=== PATIENT | male | born 1950 | race Caucasian/White ===

== ENCOUNTER → 2016-08-07 21:05 | Outpatient (CLI) | payer MEDICARE, OTHER ==
[2016-01-01 10:54] VITALS: BMI 35.3
[~2016-08-07 21:05] MED LIST: BAYER CHEWABLE81 MG PO; CLEOCIN HCL150 MG PO; DICLOFENAC SODI50 MG PO; DIFLUCAN50 MG PO; ELIQUIS2.5 MG PO; FISH OIL 1,0001 CA1 PO; FLOMAX0.4 MG PO; HYDROCODONE-APA1 TAB PO; LIPITOR20 MG PO; MULTI-DAY VITAM1 TAB PO; NEXIUM20 MG PO; PERCOCET 10/3251 TA1 PO; PERCOCET 5-3251 TAB PO; TENORMIN50 MG PO; ULTRAM50 MG PO; VOLTAREN75 MG PO; ZITHROMAX250 MG PO
== END | disposition home or self-care (01) ==
LOC: D.LABREF 21:05
DX: M19.012 Primary osteoarthritis, left shoulder (principal); Z11.8 Encounter for screening for other infectious and parasitic diseases

== ENCOUNTER 2016-09-16 07:30 | Inpatient (IN) | payer MEDICARE, OTHER ==
[~2016-09-16] VITALS: Ht 182.9 cm; Wt 127.0 kg
[2016-09-26] MEDS ORDERED: ULTRAM50 MG PO (09:58)
[2016-09-26] MEDS ORDERED: FERROUS SULFAT325 MG PO (10:00)
[2016-09-26 10:39] LABS: BASOPHILS 0.3 % (0-2); EOSINOPHILS 2.5 % (0-7); HEMATOCRIT 49.3 % (42.0-54.0); HEMOGLOBIN 16.5 g/dL (13.5-17.5); IMMATURE GRANULOCYTES 0.3 % (0-5); MCH 30.2 pg (26.0-34.0); MCHC 33.5 g/dL (31.0-37.0); MCV 90.3 fL (80.0-100.0); MEAN PLATELET VOLUME 10.7 fL (7.4-10.4); MONOCYTES 9.8 % (2-11); NEUTROPHILS 58.1 % (40-80); RBC 5.46 10x6/uL (4.20-6.10); RDW 14.4 % (11.5-14.5); WBC 7.5 10x3/uL (4.8-10.8)
[2016-09-26 10:49] LABS: CALC OSMOLALITY 283 mosm/kg (275-300); CALCIUM 8.2 mg/dL (8.5-10.1); CARBON DIOXIDE 29.5 mmol/L (21.0-32.0); CHLORIDE - SERUM 105 mmol/L (98-107); GLUCOSE 96 mg/dL (74-106); SODIUM 141 mmol/L (136-145); UREA NITROGEN 20 mg/dL (7-18); eGFR NON AFRICAN AMERICAN 79 mL/min (90-120)
[2016-09-26 10:50] LABS: PLATELET COUNT 179 10x3/uL (130-400)
[2016-09-26 10:51] LABS: APPEARANCE CLEAR (CLEAR); BILIRUBIN NEGATIVE (NEGATIVE); COLOR DK YELLOW (YELLOW); GLUCOSE NEGATIVE (NEGATIVE); KETONE NEGATIVE (NEGATIVE); LEUKOCYTE ESTERASE NEGATIVE (NEGATIVE); NITRITE NEGATIVE (NEGATIVE); PROTEIN NEGATIVE (NEGATIVE); SPECIFIC GRAVITY 1.025 (1.005-1.020); UROBILINOGEN NORMAL (NORMAL)
[2016-09-26 10:57] LABS: APTT 29.6 SECONDS (22.8-39.4); INR 0.98 (0.85-1.17); PROTIME 12.8 SECONDS (11.6-15.0)
[2016-09-30 10:32] VITALS: BP 112/63; BMI 38.0
[2016-09-30 16:35] VITALS: BP 128/55
--- NOTE | 2016-09-30 16:35 | NUR ---
RECEIVED FROM RECOVERY ROOM VIA BED. VSS. CARE PLAN REVIEWED. CALL LIGHT IN REACH. WILL CONTINUE WITH PLAN OF CARE.
--- NOTE | 2016-09-30 18:57 | NUR ---
HAS NOT VOIDED YET. NO CHANGES IN INITIAL ASSESSMENT. CALL LIGHT IN REACH. SCDs TO BLE. WILL CONTINUE WITH PLAN OF CARE,
[2016-09-30 19:00] VITALS: BP 114/80
--- NOTE | 2016-09-30 23:33 | NUR ---
2000)REC'D IN BED.SHOULDER IMMOBILIZER INTACT TO LEFT SHOULDER.MINIMAL SWELLING PRESENT.FINGERS,NAILBED PINK,WARM, WIGGLES ON COMMAND GOOD RADIAL PULSE.WILL CONTINUE TO MONITOR FOR ANY CHGES. NEUROVASCULAR STATUS AND FOLLOW CURRENT PLAN OF CARE
[2016-10-01] VITALS: BP 109/66
[2016-10-01 03:46] LABS: HEMATOCRIT 44.7 % (42.0-54.0); HEMOGLOBIN 15.2 g/dL (13.5-17.5); MCH 30.6 pg (26.0-34.0); MCV 89.9 fL (80.0-100.0); RBC 4.97 10x6/uL (4.20-6.10); RDW 14.4 % (11.5-14.5)
[2016-10-01 04:00] VITALS: BP 102/66
--- NOTE | 2016-10-01 08:16 | NUR ---
PT SEEN THIS AM. NO COMPLAINTS AT PRESENT. STATES LEFT SHOULDER NUMB-IN IMMOBLIZER. STATES HAVING DIFFICULTY VOIDING-SMALL STREAM AT PRESENT. FLOMAX GIVEN LAST PM ORDERED WILL ADDRESS WITH ASSOCIATION EXECUTIVE THIS AM. CALL LIGHT IN REACH
[2016-10-01 08:42] VITALS: BP 143/87
--- NOTE | 2016-10-01 11:20 | NUR ---
REPORT RECIEVED ASSUMED CARE. PATIENT IN BED WITH IV INTACT. NO COMPLAINTS AT THIS TIME. BRACE TO LEFT ARM ON. CALL LIGHT WITHIN REACH.
--- NOTE | 2016-10-01 11:34 | NUR ---
Patient Name: CLAIRE QUINTERO Admission Status: Elective Accout number: [id number] Admission Date: 09-30-2016 : 1950 Admission Diagnosis: Attending: GIANNA Current LOS: 1 Anticipated DC Date: Planned Disposition: Home Primary Insurance: MEDICARE A & B Discharge Planning Comments: CM met with patient to assess discharge planning needs. Patient currently lives independently with his in [place] where he plans to return to. He denies any use or needs of DME or HH services. He has 4 steps to enter his house without any problems with. Patient will be driven home by his . CM will continue to follow and assist as needed. PCP: Anuj Graham [facility] Najma () [phone] [employer] Consultant: Yue Kauffman * Is the patient Alert and Oriented? Yes 0 * How many steps to enter\exit or inside your home? 4 0 * PCP Anuj Pierce -[place] 0 * Pharmacy [facility] 0 * Preadmission Environment Home with Family 0 * ADLs Independent 0 * Equipment None 0 * List name and contact numbers for known caregivers / representatives who currently or will assist patient after discharge: Najma Quintero- [phone] * Community resources currently utilized None 0 * Additional services required to return to the preadmission environment? No 0 * Can the patient safely return to the preadmission environment? Yes 0 * Has this patient been hospitalized within the prior 30 days at any hospital? No 0 Grand Total: 0
--- NOTE | 2016-10-01 11:42 | NUR ---
Patient stated that he has already set up his Physical Therapy in [place] for Oct 15 with [facility]
--- NOTE | 2016-10-01 12:15 | NUR ---
PATIENT SITTING UP ON SIDE OF BED EATING. NO COMPLAINTS AT THIS TIME. STATED WANTS TO DC TODAY. EXPLAINED WOULD HAVE TO WAIT TO SEE WHAT PHYSICIAN SAYS. VERBALIZED UNDERSTANDING. CALL LIGHT WITHIN REACH.
[2016-10-01 12:46] VITALS: Ht 182.9 cm; Wt 127.0 kg
[2016-10-01 14:10] VITALS: BP 121/70
--- NOTE | 2016-10-01 15:43 | NUR ---
RHODES CATH PLACED BY JORGE ATKINSON
--- NOTE | 2016-10-01 16:45 | NUR ---
PATIENT IN BED WITH IV INTACT. NO COMPLAINTS. AWAITING DC INSTRUCTIONS. CALL LIGHT WITHIN REACH.
[2016-10-01] MEDS ORDERED: PERCOCET 10/3251 TA1 PO (17:03)
--- NOTE | 2016-10-01 18:00 | NUR ---
PATIENT RECIEVED DC INSTRUCTIONS. VERBALIZED UNDERSTANDING. PRESCRIPTION GIVEN TO PATIENT. IV REMOVED WITH CATH TIP INTACT. EXPLAINED TO PATIENT HOW TO CHANGE CATH TO LEG BAG. PATIENT VERBALIZED UNDERSTANDING. STATED HE HAD USED THEM BEFORE. AWAITING WC FOR DC. CALL LIGHT WITHIN REACH.
== END 2016-10-01 18:47 | disposition home or self-care (01) | DRG 483 ==
LOC: D.SDCHOLD 09-30 07:02 → D.MS 09-30 07:02 → D.SDCHOLD 09-30 07:30 → D.MS 09-30 16:10
PROVIDERS: ADMIT Orthopaedic Surgery
PROC: 0RRK0JZ Replacement of Left Shoulder Joint with Synthetic Substitute, Open Approach (ICD-10-PCS; principal; 2016-09-30 11:45)
DX: M19.012 Primary osteoarthritis, left shoulder (principal); K21.9 Gastro-esophageal reflux disease without esophagitis; E78.00 Pure hypercholesterolemia, unspecified

== ENCOUNTER → 2019-02-02 17:53 | Outpatient (CLI) | payer MEDICARE ==
[2016-10-01 12:46] VITALS: BMI 38.0
[~2019-02-02 17:53] MED LIST changes: +FERROUS SULFAT325 MG PO
== END | disposition home or self-care (01) ==
LOC: D.LABREF 17:53
PROVIDERS: ATTEND Orthopaedic Surgery
DX: M17.12 Unilateral primary osteoarthritis, left knee (principal)

== ENCOUNTER 2019-02-04 11:18 | Inpatient (IN) | payer MEDICARE, OTHER ==
[~2019-02-04] VITALS: Ht 182.9 cm; Wt 122.7 kg
[2019-04-20] MEDS ORDERED: NEXIUM20 MG PO (14:59)
[2019-04-21 11:16] LABS: BASOPHILS 0.3 % (0-2); EOSINOPHILS 3.9 % (0-7); HEMATOCRIT 50.6 % (42.0-54.0); HEMOGLOBIN 17.1 g/dL (13.5-17.5); IMMATURE GRANULOCYTES 0.2 % (0-5); LYMPHOCYTES 21.9 % (15-50); MCH 30.2 pg (26.0-34.0); MCHC 33.8 g/dL (31.0-37.0); MCV 89.2 fL (80.0-100.0); MEAN PLATELET VOLUME 10.5 fL (7.4-10.4); MONOCYTES 12.2 % (2-11); NEUTROPHILS 61.5 % (40-80); PLATELET COUNT 210 10x3/uL (130-400); RBC 5.67 10x6/uL (4.20-6.10); RDW 14.2 % (11.5-14.5)
[2019-04-21 11:27] LABS: ANION GAP 8.3 mmol/L (8-16); CALCIUM 8.7 mg/dL (8.5-10.1); CARBON DIOXIDE 33.1 mmol/L (21.0-32.0); CREATININE - SERUM 1.2 mg/dL (0.6-1.3); POTASSIUM - SERUM 4.4 mmol/L (3.5-5.1)
[2019-04-21 11:35] LABS: BILIRUBIN NEGATIVE (NEGATIVE); GLUCOSE NEGATIVE (NEGATIVE); KETONE NEGATIVE (NEGATIVE); NITRITE NEGATIVE (NEGATIVE); UROBILINOGEN NORMAL (NORMAL)
[2019-04-21 12:02] LABS: APTT 29.6 SECONDS (22.8-39.4); INR 0.97 (0.85-1.17); PROTIME 12.8 SECONDS (11.6-15.0)
[2019-04-26] VITALS (9 sets, daily range): BP systolic 116–163; BP diastolic 70–97; Ht 182.9 cm; Wt 122.7 kg
--- NOTE | 2019-04-26 17:30 | MORECARE ---
CASE MANAGEMENT DISCHARGE SUMMARY PATIENT: CLAIRE HENDRIX UNIT: [id number] ADM DATE: 04/26/19 AGE: 69 : 49 SEX: M ROOM/BED: D.1209 AUTHOR: JASMINE MESA PHYSICIAN: REFERRING PHYSICIAN: GERMAN MORENO MD DATE OF SERVICE: 04/26/19 Discharge Plan Patient Name: CLAIRE HENDRIX [facility] [facility] 1950 Planned Disposition: Home Anticipated Discharge Date: Discharge Date: Expected LOS: Initial Reviewer: [id number] Initial Review Date: 04/26/2019 Generated: 04/26/19 6:30 pm Coverage Notice Reviewer: [id number] Jamila Casillas Notice Issued Date-Time: 04/26/2019 16:20 Notice Type: IM Admission Notice Notice Delivered To: Patient Relationship to Patient: Acid Wash Operator Name: Delivery Method: - Yamilka Days: Prior Verbal Notification: Recipient Understood Notice: Yes Recipient Signature: Yes Med Rec Note Co-signed by Attending: Coverage Notice Comment: IMM delivered, explained, signed by the patient, and placed in his chart. Signed form also left with patient. Fina Casillas RN, [facility] Reviewer: [id number] Jamila Casillas Notice Issued Date-Time: 04/26/2019 16:20 Notice Type: Patient Choice Letter Notice Delivered To: Patient Relationship to Patient: Acid Wash Operator Name: Delivery Method: - Yamilka Days: Prior Verbal Notification: Recipient Understood Notice: Yes Recipient Signature: Yes Med Rec Note Co-signed by Attending: Coverage Notice Comment: LUDA signed for Physical Therapy [facility] Patient Name: CLAIRE HENDRIX Page [id number] at 1730 All edits/amendments must be made on the electronic document DICTATION DATE: 04/26/19 173 GERIATRIC CARE MANAGER: BRAEDEN 04/26/19 173 RPT#: [id number] DC DATE: STATUS: ADM IN [facility] [address] [place] [address] END OF REPORT
--- NOTE | 2019-04-26 17:39 | MORECARE ---
CASE MANAGEMENT DISCHARGE SUMMARY PATIENT: CLAIRE QUINTERO UNIT: [id number] ADM DATE: 04/26/19 AGE: 69 : 49 SEX: M ROOM/BED: D.1209 AUTHOR: BONITA,DOC PHYSICIAN: REFERRING PHYSICIAN: GERMAN MORENO MD DATE OF SERVICE: 04/26/19 Discharge Plan Patient Name: CLAIRE QUINTERO Facility: [facility]:[place] : 1950 Planned Disposition: Home Anticipated Discharge Date: Discharge Date: Expected LOS: Initial Reviewer: [id number] Initial Review Date: 04/26/2019 Generated: 04/26/19 6:38 pm Comments DCP- Discharge Planning Updated by [id number]: Fina Casillas on 04/26/19 4:[address] DC PLAN: Return home with and outpatient physical therapy. ANTICIPATED DC NEEDS: OP PT @ [facility] in [place]. CM met with patient to complete initial dc planning assessment. CM educated patient on the CM role and verbal consent given by patient to complete assessment. CM verified patient's address, phone number, and emergency contact phone numbers. Patient lives at home with his and was independent in his care prior to surgery. At discharge patient plans to return home with his and feels this is a safe discharge. He signed marty form for Physical [facility] in [place]. He reports he has already made his first appointment for 05-06-19. He stated he would call and change if he needed to. Cm will fax order to the office once fax number is known. Office closed at this time. He reports his walker, cpm, and bsc have be delivered to his home prior to surgery. He reports the walker is not the right height and he needs a different one. CM called Jenna at Dr. Hodge office and she stated she would call the [employer] to bring appropriate walker. Patient denied further known discharge needs at this time. Transportation provider at discharge will be his . CM will continue to follow and will assist as needed with dc plans/needs. Fina Casillas RN, [facility] DCPIA - Discharge Planning Initial Assessment Updated by [id number]: Fina Casillas on 04/26/19 5:31 pm * Is the patient Alert and Oriented? Yes * How many steps to enter\exit or inside your home? * PCP Dr. Anuj Pierce - [place] * Pharmacy [facility] in [place] * Preadmission Environment Home with Family * ADLs Independent * Equipment Bedside Commode Rolling Walker * Other Equipment CPM * List name and contact numbers for known caregivers / representatives who currently or will assist patient after discharge: Najma Quintero - [facility] - [phone] * Verbal permission to speak to the caregivers and representatives has been obtained from the patient. Yes * Additional services required to return to the preadmission environment? Yes * Can the patient safely return to the preadmission environment? Yes * Has this patient been hospitalized within the prior 30 days at any hospital? No Coverage Notice Reviewer: [id number] Jamila Casillas Notice Issued Date-Time: 04/26/2019 16:20 Notice Type: IM Admission Notice Notice Delivered To: Patient Relationship to Patient: Retinal Angiographer Name: Delivery Method: - Yamilka Days: Prior Verbal Notification: Recipient Understood Notice: Yes Recipient Signature: Yes Med Rec Note Co-signed by Attending: Coverage Notice Comment: IMM delivered, explained, signed by the patient, and placed in his chart. Signed form also left with patient. Fina Casillas RN, CCM Reviewer: [id number] Jamila Casillas Notice Issued Date-Time: 04/26/2019 16:20 Notice Type: Patient Choice Letter Notice Delivered To: Patient Relationship to Patient: Retinal Angiographer Name: Delivery Method: - Yamilka Days: Prior Verbal Notification: Recipient Understood Notice: Yes Recipient Signature: Yes Med Rec Note Co-signed by Attending: Coverage Notice Comment: MARTY signed for Physical Therapy [facility] Last DP export: 04/26/19 4:30 pm Patient Name: CLAIRE QUINTERO Page [id number] at 1739 All edits/amendments must be made on the electronic document DICTATION DATE: 04/26/191737 DIRECTOR MUSEUM OR ZOO: BRAEDEN 04/26/191737 RPT#: [id number] DC DATE: STATUS: ADM IN [facility] [address] [place] [address] END OF REPORT
[2019-04-27] VITALS (7 sets, daily range): BP systolic 103–150; BP diastolic 62–75
[2019-04-27 06:37] LABS: HEMATOCRIT 44.6 % (42.0-54.0); HEMOGLOBIN 14.6 g/dL (13.5-17.5); MCHC 32.7 g/dL (31.0-37.0); MCV 88.5 fL (80.0-100.0); MEAN PLATELET VOLUME 10.5 fL (7.4-10.4); RBC 5.04 10x6/uL (4.20-6.10); WBC 13.3 10x3/uL (4.8-10.8)
--- NOTE | 2019-04-27 10:25 | MORECARE ---
CASE MANAGEMENT DISCHARGE SUMMARY PATIENT: CLAIRE QUINTERO UNIT: [id number] ADM DATE: 04/26/19 AGE: 69 : 49 SEX: M ROOM/BED: D.1209 AUTHOR: BONITA,DOC PHYSICIAN: REFERRING PHYSICIAN: GERMAN MORENO MD DATE OF SERVICE: 04/27/19 Discharge Plan Patient Name: CLAIRE QUINTERO Facility: [facility]:[place] : 1950 Planned Disposition: Home Anticipated Discharge Date: Discharge Date: Expected LOS: Initial Reviewer: [email or web address] Initial Review Date: 04/26/2019 Generated: 04/27/19 11:24 am Comments DCP- Discharge Planning Updated by [email or web address]: Samira Rankin on 04/27/19 9:[address] CM contacted OP Physical Therapy [facility] [employer] [facility] [place], verified appointment April 29, 2019 @0945. CM faxed the order to [facility] and provided a copy to the patient. Original placed on chart. DCP- Discharge Planning Updated by [email or web address]: Fina Casillas on 04/26/19 4:[address] DC PLAN: Return home with and outpatient physical therapy. ANTICIPATED DC NEEDS: OP PT @ Physical [email or web address] in [place]. CM met with patient to complete initial dc planning assessment. CM educated patient on the CM role and verbal consent given by patient to complete assessment. CM verified patient's address, phone number, and emergency contact phone numbers. Patient lives at home with his and was independent in his care prior to surgery. At discharge patient plans to return home with his and feels this is a safe discharge. He signed marty form for Physical [employer] in [place]. He reports he has already made his first appointment for 05-06-19. He stated he would call and change if he needed to. Cm will fax order to the office once fax number is known. Office closed at this time. He reports his walker, cpm, and bsc have be delivered to his home prior to surgery. He reports the walker is not the right height and he needs a different one. CM called Jenna at Dr. Hodge office and she stated she would call the [employer] to bring appropriate walker. Patient denied further known discharge needs at this time. Transportation provider at discharge will be his . CM will continue to follow and will assist as needed with dc plans/needs. Fina Casillas RN, CCM DCPIA - Discharge Planning Initial Assessment Updated by [email or web address]: Fina Casillas on 04/26/19 5:31 pm * Is the patient Alert and Oriented? Yes * How many steps to enter\exit or inside your home? * PCP Dr[facility] Anuj [facility] * Pharmacy [facility] in [place] * Preadmission Environment Home with Family * ADLs Independent * Equipment Bedside Commode Rolling Walker * Other Equipment CPM * List name and contact numbers for known caregivers / representatives who currently or will assist patient after discharge: Najma Quintero - spouse - [phone] * Verbal permission to speak to the caregivers and representatives has been obtained from the patient. Yes * Additional services required to return to the preadmission environment? Yes * Can the patient safely return to the preadmission environment? Yes * Has this patient been hospitalized within the prior 30 days at any hospital? No Coverage Notice Reviewer: [id number] Jamila Casillas Notice Issued Date-Time: 04/26/2019 16:20 Notice Type: IM Admission Notice Notice Delivered To: Patient Relationship to Patient: Water Chemist Name: Delivery Method: - Yamilka Days: Prior Verbal Notification: Recipient Understood Notice: Yes Recipient Signature: Yes Med Rec Note Co-signed by Attending: Coverage Notice Comment: IMM delivered, explained, signed by the patient, and placed in his chart. Signed form also left with patient. Fina Casillas RN, CCM Reviewer: [id number] Jamila Casillas Notice Issued Date-Time: 04/26/2019 16:20 Notice Type: Patient Choice Letter Notice Delivered To: Patient Relationship to Patient: Water Chemist Name: Delivery Method: - Yamilka Days: Prior Verbal Notification: Recipient Understood Notice: Yes Recipient Signature: Yes Med Rec Note Co-signed by Attending: Coverage Notice Comment: MARTY signed for Physical Therapy [facility] Last DP export: 04/26/19 4:39 pm Patient Name: CLAIRE QUINTERO Page [phone] at 1025 All edits/amendments must be made on the electronic document DICTATION DATE: 04/27/19 1024 DEDICATED TRUCK DRIVER: BRAEDEN 04/27/19 1024 RPT#: [id number] DC DATE: STATUS: ADM IN [facility] [address] [place] [address] END OF REPORT
--- NOTE | 2019-04-27 10:51 | MORECARE ---
CASE MANAGEMENT DISCHARGE SUMMARY PATIENT: CLAIRE QUINTERO UNIT: [id number] ADM DATE: 04/26/19 AGE: 69 : 49 SEX: M ROOM/BED: D.1209 AUTHOR: BONITA,DOC PHYSICIAN: REFERRING PHYSICIAN: GERMAN MORENO MD DATE OF SERVICE: 04/27/19 Discharge Plan Patient Name: CLAIRE QUINTERO Facility: [facility]:[place] : 1950 Planned Disposition: Home Anticipated Discharge Date: Discharge Date: Expected LOS: Initial Reviewer: [email or web address] Initial Review Date: 04/26/2019 Generated: 04/27/19 11:51 am Comments DCP- Discharge Planning Updated by [id number]: Samira Rankin on 04/27/19 9:[address] Home walker was delivered to patient's room. DCP- Discharge Planning Updated by [email or web address]: Samira Rankin on 04/27/19 9:[address] CM contacted OP [facility] [place], verified appointment April 29, 2019 @0945. CM faxed the order to [facility] and provided a copy to the patient. Original placed on chart. DCP- Discharge Planning Updated by [email or web address]: Fina Casillas on 04/26/19 4:[address] DC PLAN: Return home with and outpatient physical therapy. ANTICIPATED DC NEEDS: OP PT @ [facility] in [place]. CM met with patient to complete initial dc planning assessment. CM educated patient on the CM role and verbal consent given by patient to complete assessment. CM verified patient's address, phone number, and emergency contact phone numbers. Patient lives at home with his and was independent in his care prior to surgery. At discharge patient plans to return home with his and feels this is a safe discharge. He signed marty form for Physical [facility] in [place]. He reports he has already made his first appointment for 05-06-19. He stated he would call and change if he needed to. Cm will fax order to the office once fax number is known. Office closed at this time. He reports his walker, cpm, and bsc have be delivered to his home prior to surgery. He reports the walker is not the right height and he needs a different one. CM called Jenna at Dr. Hodge office and she stated she would call the [employer] company to bring appropriate walker. Patient denied further known discharge needs at this time. Transportation provider at discharge will be his . CM will continue to follow and will assist as needed with dc plans/needs. Fina Casillas RN, CCM DCPIA - Discharge Planning Initial Assessment Updated by [id number]: Fina Casillas on 04/26/19 5:31 pm * Is the patient Alert and Oriented? Yes * How many steps to enter\exit or inside your home? * PCP Dr. Anuj Pierce - [place] * Pharmacy [facility] in [place] * Preadmission Environment Home with Family * ADLs Independent * Equipment Bedside Commode Rolling Walker * Other Equipment CPM * List name and contact numbers for known caregivers / representatives who currently or will assist patient after discharge: Najma Quintero - spouse - [phone] * Verbal permission to speak to the caregivers and representatives has been obtained from the patient. Yes * Additional services required to return to the preadmission environment? Yes * Can the patient safely return to the preadmission environment? Yes * Has this patient been hospitalized within the prior 30 days at any hospital? No Coverage Notice Reviewer: [id number] Jamila Casillas Notice Issued Date-Time: 04/26/2019 16:20 Notice Type: IM Admission Notice Notice Delivered To: Patient Relationship to Patient: Medical Videographer Name: Delivery Method: - Yamilka Days: Prior Verbal Notification: Recipient Understood Notice: Yes Recipient Signature: Yes Med Rec Note Co-signed by Attending: Coverage Notice Comment: IMM delivered, explained, signed by the patient, and placed in his chart. Signed form also left with patient. Fina Casillas RN, CCM Reviewer: [id number] Jamila Casillas Notice Issued Date-Time: 04/26/2019 16:20 Notice Type: Patient Choice Letter Notice Delivered To: Patient Relationship to Patient: Medical Videographer Name: Delivery Method: - Yamilka Days: Prior Verbal Notification: Recipient Understood Notice: Yes Recipient Signature: Yes Med Rec Note Co-signed by Attending: Coverage Notice Comment: MARTY signed for Physical Therapy [facility] Last DP export: 04/27/19 9:25 am Patient Name: CLAIRE QUINTERO Page [phone] at 1051 All edits/amendments must be made on the electronic document DICTATION DATE: 04/27/19 105 AUTOMOBILE SALES CONSULTANT: BRAEDEN 04/27/19 1051 RPT#: [id number] DC DATE: STATUS: ADM IN [facility] [address] [place] [address] END OF REPORT
[2019-04-28 04:25] VITALS: BP 136/73
[2019-04-28 07:50] VITALS: BP 136/75
[2019-04-28 09:01] LABS: HEMATOCRIT 43.6 % (42.0-54.0); HEMOGLOBIN 14.6 g/dL (13.5-17.5); MCH 29.5 pg (26.0-34.0); MCHC 33.5 g/dL (31.0-37.0); MCV 88.1 fL (80.0-100.0); MEAN PLATELET VOLUME 10.8 fL (7.4-10.4); RBC 4.95 10x6/uL (4.20-6.10); WBC 16.3 10x3/uL (4.8-10.8)
[2019-04-28 11:52] VITALS: BP 122/66
--- NOTE | 2019-04-28 14:26 | MORECARE ---
CASE MANAGEMENT DISCHARGE SUMMARY PATIENT: CLAIRE QUINTERO UNIT: [id number] ADM DATE: 04/26/19 AGE: 69 : 49 SEX: M ROOM/BED: D.1209 AUTHOR: BONITA,DOC PHYSICIAN: REFERRING PHYSICIAN: GERMAN MORENO MD DATE OF SERVICE: 04/28/19 Discharge Plan Patient Name: CLAIRE QUINTERO Facility: [facility]:[place] : 1950 Planned Disposition: Home Anticipated Discharge Date: Discharge Date: Expected LOS: Initial Reviewer: [email or web address] Initial Review Date: 04/26/2019 Generated: 04/28/19 3:25 pm Comments DCP- Discharge Planning Updated by [email or web address]: Samira Rankin on 04/27/19 9:[address] Home walker was delivered to patient's room. DCP- Discharge Planning Updated by [email or web address]: Samira Rankin on 04/27/19 9:[address] CM contacted OP Physical [employer] [facility] [place], verified appointment April 29, 2019 @0945. CM faxed the order to [facility] and provided a copy to the patient. Original placed on chart. DCP- Discharge Planning Updated by [email or web address]: Fina Casillas on 04/26/19 4:[address] DC PLAN: Return home with and outpatient physical therapy. ANTICIPATED DC NEEDS: OP PT @ Physical [employer] in [place]. CM met with patient to complete initial dc planning assessment. CM educated patient on the CM role and verbal consent given by patient to complete assessment. CM verified patient's address, phone number, and emergency contact phone numbers. Patient lives at home with his and was independent in his care prior to surgery. At discharge patient plans to return home with his and feels this is a safe discharge. He signed marty form for Physical [employer] in [place]. He reports he has already made his first appointment for 05-06-19. He stated he would call and change if he needed to. Cm will fax order to the office once fax number is known. Office closed at this time. He reports his walker, cpm, and bsc have be delivered to his home prior to surgery. He reports the walker is not the right height and he needs a different one. CM called Jenna at Dr. Hodge office and she stated she would call the [employer] company to bring appropriate walker. Patient denied further known discharge needs at this time. Transportation provider at discharge will be his . CM will continue to follow and will assist as needed with dc plans/needs. Fina Casillas RN, CCM DCPIA - Discharge Planning Initial Assessment Updated by [id number]: Fina Casillas on 04/26/19 5:31 pm * Is the patient Alert and Oriented? Yes * How many steps to enter\exit or inside your home? * PCP Dr. Anuj Pierce - [place] * Pharmacy [facility] in [place] * Preadmission Environment Home with Family * ADLs Independent * Equipment Bedside Commode Rolling Walker * Other Equipment CPM * List name and contact numbers for known caregivers / representatives who currently or will assist patient after discharge: Najma Quintero - spouse - [phone] * Verbal permission to speak to the caregivers and representatives has been obtained from the patient. Yes * Additional services required to return to the preadmission environment? Yes * Can the patient safely return to the preadmission environment? Yes * Has this patient been hospitalized within the prior 30 days at any hospital? No Coverage Notice Reviewer: [id number] Jamila Casillas Notice Issued Date-Time: 04/26/2019 16:20 Notice Type: IM Admission Notice Notice Delivered To: Patient Relationship to Patient: Esol Teacher Assistant Name: Delivery Method: - Yamilka Days: Prior Verbal Notification: Recipient Understood Notice: Yes Recipient Signature: Yes Med Rec Note Co-signed by Attending: Coverage Notice Comment: IMM delivered, explained, signed by the patient, and placed in his chart. Signed form also left with patient. Fina Casillas RN, CCM Reviewer: [id number] Jamila Casillas Notice Issued Date-Time: 04/26/2019 16:20 Notice Type: Patient Choice Letter Notice Delivered To: Patient Relationship to Patient: Esol Teacher Assistant Name: Delivery Method: - Yamilka Days: Prior Verbal Notification: Recipient Understood Notice: Yes Recipient Signature: Yes Med Rec Note Co-signed by Attending: Coverage Notice Comment: MARTY signed for Physical Therapy [facility] Last DP export: 04/27/19 9:51 am Patient Name: CLAIRE QUINTERO Page [id number] Electronically Signed by JASMINE [facility] on 04/28/19 at 1426 All edits/amendments must be made on the electronic document DICTATION DATE: 04/28/191424 DIRECTOR INVESTMENT BANKING: BRAEDEN 04/28/19 142 RPT#: [id number] DC DATE: STATUS: ADM IN [address] [place] [address] END OF REPORT
--- NOTE | 2019-04-28 16:13 | MORECARE ---
CASE MANAGEMENT DISCHARGE SUMMARY PATIENT: CLAIRE QUINTERO UNIT: [id number] ADM DATE: 04/26/19 AGE: 69 : 49 SEX: M ROOM/BED: D.1209 AUTHOR: BONITA,DOC PHYSICIAN: REFERRING PHYSICIAN: GERMAN MORENO MD DATE OF SERVICE: 04/28/19 Discharge Plan Patient Name: CLAIRE QUINTERO Facility: [facility]:[place] : 1950 Planned Disposition: Home Anticipated Discharge Date: Discharge Date: Expected LOS: Initial Reviewer: [email or web address] Initial Review Date: 04/26/2019 Generated: 04/28/19 5:12 pm Comments DCP- Discharge Planning Updated by [id number]: Samira Rankin on 04/27/19 9:[address] Home walker was delivered to patient's room. DCP- Discharge Planning Updated by [id number]: Samira Rankin on 04/27/19 9:[address] CM contacted OP [facility] of [place], verified appointment April 29, 2019 @0945. CM faxed the order to [facility] and provided a copy to the patient. Original placed on chart. DCP- Discharge Planning Updated by [email or web address]: Fina Casillas on 04/26/19 4:[address] DC PLAN: Return home with and outpatient physical therapy. ANTICIPATED DC NEEDS: OP PT @ [facility] in [place]. CM met with patient to complete initial dc planning assessment. CM educated patient on the CM role and verbal consent given by patient to complete assessment. CM verified patient's address, phone number, and emergency contact phone numbers. Patient lives at home with his and was independent in his care prior to surgery. At discharge patient plans to return home with his and feels this is a safe discharge. He signed marty form for [facility] in [place]. He reports he has already made his first appointment for 05-06-19. He stated he would call and change if he needed to. Cm will fax order to the office once fax number is known. Office closed at this time. He reports his walker, cpm, and bsc have be delivered to his home prior to surgery. He reports the walker is not the right height and he needs a different one. CM called Jenna at Dr. Hodge office and she stated she would call the [employer] company to bring appropriate walker. Patient denied further known discharge needs at this time. Transportation provider at discharge will be his . CM will continue to follow and will assist as needed with dc plans/needs. Fina Casillas RN, CCM DCPIA - Discharge Planning Initial Assessment Updated by [email or web address]: Fina Casillas on 04/26/19 5:31 pm * Is the patient Alert and Oriented? Yes * How many steps to enter\exit or inside your home? * PCP Dr. Anuj Pierce - [place] * Pharmacy [facility] in [place] * Preadmission Environment Home with Family * ADLs Independent * Equipment Bedside Commode Rolling Walker * Other Equipment CPM * List name and contact numbers for known caregivers / representatives who currently or will assist patient after discharge: Najma Quintero - spouse - [phone] * Verbal permission to speak to the caregivers and representatives has been obtained from the patient. Yes * Additional services required to return to the preadmission environment? Yes * Can the patient safely return to the preadmission environment? Yes * Has this patient been hospitalized within the prior 30 days at any hospital? No Coverage Notice Reviewer: [id number] Jamila Casillas Notice Issued Date-Time: 04/26/2019 16:20 Notice Type: IM Admission Notice Notice Delivered To: Patient Relationship to Patient: Plastics Tooling Engineer Name: Delivery Method: - Yamilka Days: Prior Verbal Notification: Recipient Understood Notice: Yes Recipient Signature: Yes Med Rec Note Co-signed by Attending: Coverage Notice Comment: IMM delivered, explained, signed by the patient, and placed in his chart. Signed form also left with patient. Fina Casillas RN, CCM Reviewer: [id number] - Fina Casillas Notice Issued Date-Time: 04/26/2019 16:20 Notice Type: Patient Choice Letter Notice Delivered To: Patient Relationship to Patient: Plastics Tooling Engineer Name: Delivery Method: - Yamilka Days: Prior Verbal Notification: Recipient Understood Notice: Yes Recipient Signature: Yes Med Rec Note Co-signed by Attending: Coverage Notice Comment: MARTY signed for Physical Therapy [facility] Reviewer: [id number] Jamila Rankin Notice Issued Date-Time: 04/28/2019 14:28 Notice Type: IM Discharge Notice Notice Delivered To: Patient Relationship to Patient: Self Plastics Tooling Engineer Name: Claire Quintero Delivery Method: HAND - Hand Delivered Yamilka Days: Prior Verbal Notification: Recipient Understood Notice: Yes Recipient Signature: Yes Med Rec Note Co-signed by Attending: Coverage Notice Comment: DC IMM delivered to and signed by patient. Original given to the patient and one placed on the chart. Last DP export: 04/28/19 1:26 pm Patient Name: CLAIRE QUINTERO Page [id number] at 1613 All edits/amendments must be made on the electronic document DICTATION DATE: 04/28/19 1613 GLASSWARE ENGRAVER: BRAEDEN 04/28/19 1613 RPT#: [id number] DC DATE: STATUS: ADM IN [facility] [address] [place] [address] END OF REPORT
--- NOTE | 2019-04-28 16:23 | MORECARE ---
CASE MANAGEMENT DISCHARGE SUMMARY PATIENT: CLAIRE QUINTERO UNIT: [id number] ADM DATE: 04/26/19 AGE: 69 : 49 SEX: M ROOM/BED: D.1209 AUTHOR: BONITA,DOC PHYSICIAN: REFERRING PHYSICIAN: GERMAN MORENO MD DATE OF SERVICE: 04/28/19 Discharge Plan Patient Name: CLAIRE QUINTERO Facility: [facility]:[place] : 1950 Planned Disposition: Home Anticipated Discharge Date: Discharge Date: Expected LOS: Initial Reviewer: [email or web address] Initial Review Date: 04/26/2019 Generated: 04/28/19 5:23 pm Comments DCP- Discharge Planning Updated by [id number]: Samira Rankin on 04/28/19 3:[address] CM contacted Outpatient Therapy in [place] to reschedule appointment. new appointment 04/30/19 @1045. Patient's is aware of same. DCP- Discharge Planning Updated by [id number]: Samira Rankin on 04/27/19 9:[address] Home walker was delivered to patient's room. DCP- Discharge Planning Updated by [id number]: Samira Rankin on 04/27/19 9:[address] CM contacted OP [facility] of [place], verified appointment April 29, 2019 @0945. CM faxed the order to [facility] and provided a copy to the patient. Original placed on chart. DCP- Discharge Planning Updated by [id number]: Fina Casillas on 04/26/19 4:[address] DC PLAN: Return home with and outpatient physical therapy. ANTICIPATED DC NEEDS: OP PT @ [facility] in [place]. CM met with patient to complete initial dc planning assessment. CM educated patient on the CM role and verbal consent given by patient to complete assessment. CM verified patient's address, phone number, and emergency contact phone numbers. Patient lives at home with his and was independent in his care prior to surgery. At discharge patient plans to return home with his and feels this is a safe discharge. He signed amrty form for [facility] in [place]. He reports he has already made his first appointment for 05-06-19. He stated he would call and change if he needed to. Cm will fax order to the office once fax number is known. Office closed at this time. He reports his walker, cpm, and bsc have be delivered to his home prior to surgery. He reports the walker is not the right height and he needs a different one. CM called Jenna at Dr. Hodge office and she stated she would call the [employer] company to bring appropriate walker. Patient denied further known discharge needs at this time. Transportation provider at discharge will be his . CM will continue to follow and will assist as needed with dc plans/needs. Fina Casillas RN, CCM DCPIA - Discharge Planning Initial Assessment Updated by [id number]: Fina Casillas on 04/26/19 5:31 pm * Is the patient Alert and Oriented? Yes * How many steps to enter\exit or inside your home? * PCP Dr[facility] Anuj [facility] * Pharmacy [facility] in [place] * Preadmission Environment Home with Family * ADLs Independent * Equipment Bedside Commode Rolling Walker * Other Equipment CPM * List name and contact numbers for known caregivers / representatives who currently or will assist patient after discharge: Najma Quintero - spouse - [phone] * Verbal permission to speak to the caregivers and representatives has been obtained from the patient. Yes * Additional services required to return to the preadmission environment? Yes * Can the patient safely return to the preadmission environment? Yes * Has this patient been hospitalized within the prior 30 days at any hospital? No Coverage Notice Reviewer: [id number] Jamila Casillas Notice Issued Date-Time: 04/26/2019 16:20 Notice Type: IM Admission Notice Notice Delivered To: Patient Relationship to Patient: Bobbin Marker Name: Delivery Method: - Yamilka Days: Prior Verbal Notification: Recipient Understood Notice: Yes Recipient Signature: Yes Med Rec Note Co-signed by Attending: Coverage Notice Comment: IMM delivered, explained, signed by the patient, and placed in his chart. Signed form also left with patient. Fina Casillas RN, CCM Reviewer: [id number] Jamila Casillas Notice Issued Date-Time: 04/26/2019 16:20 Notice Type: Patient Choice Letter Notice Delivered To: Patient Relationship to Patient: Bobbin Marker Name: Delivery Method: - Yamilka Days: Prior Verbal Notification: Recipient Understood Notice: Yes Recipient Signature: Yes Med Rec Note Co-signed by Attending: Coverage Notice Comment: MARTY signed for Physical Therapy [facility] Reviewer: [id number] Jamila Rankin Notice Issued Date-Time: 04/28/2019 14:28 Notice Type: IM Discharge Notice Notice Delivered To: Patient Relationship to Patient: Self Bobbin Marker Name: Claire Quintero Delivery Method: HAND - Hand Delivered Yamilka Days: Prior Verbal Notification: Recipient Understood Notice: Yes Recipient Signature: Yes Med Rec Note Co-signed by Attending: Coverage Notice Comment: DC IMM delivered to and signed by patient. Original given to the patient and one placed on the chart. Last DP export: 04/28/19 3:13 pm Patient Name: CLAIRE QUINTERO Page [id number] at 1623 All edits/amendments must be made on the electronic document DICTATION DATE: 04/28/19 1623 SYSTEMS SECURITY CONSULTANT: BRAEDEN 04/28/19 1623 RPT#: [id number] DC DATE: STATUS: ADM IN [facility] [address] [place] [address] END OF REPORT
[2019-04-28 17:45] VITALS: BP 114/54
[2019-04-28 19:46] VITALS: BP 120/62
[2019-04-29 00:19] VITALS: BP 112/59
[2019-04-29 04:51] VITALS: BP 125/48
[2019-04-29 07:15] VITALS: BP 111/65
--- NOTE | 2019-04-29 07:24 | OP ---
PATIENT NAME: CLAIRE HENDRIX MEDICAL RECORD: [id number] :[birth year] LOCATION:D.M3 D.1209 ADMISSION DATE:04/26/19 SURGEON: GERMAN MORENO MD DATE OF OPERATION: 04/26/2019 PREOPERATIVE DIAGNOSIS: Degenerative arthritis of the left knee. POSTOPERATIVE DIAGNOSIS: Degenerative arthritis of the left knee. PROCEDURE: Left total knee arthroplasty. SURGEON: German Moreno MD PRESSURE DISPATCHER: Abraham Carty SA INTRAOPERATIVE COMPLICATIONS: None. SUMMARY OF PATHOLOGIC FINDINGS: Claire had severe medial joint line based arthritis with a varus deformity also had patellar chondromalacia as well as mild chondromalacia in the lateral compartment. Multiple osteophytic processes were seen at the time of surgery. IMPLANTS USED: [place] Triathlon cruciate femoral retaining prosthesis size 6, primary tibial baseplate size 6, Triathlon X3 symmetric patella size 36 x 10 and then a tibial insert size 11 x6. OPERATIVE SUMMARY IN DETAIL: After obtaining the appropriate preoperative orthopedic surgery consent as well as anesthetic consultation, evaluation and clearance, the patient was brought to the operating room and placed on the operating table in supine position. After general laryngeal mask airway was administered, tourniquet was placed on the proximal aspect of the left lower extremity. Left lower extremity was then prepped and draped in routine sterile fashion. The leg was elevated and exsanguinated, tourniquet inflated to 350 mmHg. At this point, the appropriate time out taken and agreed upon by all given the patient's unique identifiers. Midline incision was taken down for paramedian arthrotomy. Patella was then everted, distal femur was exposed. Soft tissue excision was done in the usual fashion. Distal intramedullary guide hole was created for distal femoral cutting. After cutting the distal femur, the proximal tibia was completely exposed. Further soft tissue then gave way to soft tissue excision and gave way to creating an intramedullary guide hole for the tibia. The tibia was likewise cut. Measurements were taken and the chamfer cuts were made in the distal femur. Trials corresponding to the above trials were put into place, taken through range of motion and found to be stable in all planes. Final distal and femoral preparations were made. This was followed by excision of the arthritic patellar surface. Final patellar preparations were made. At this point, all trials were removed. The entire knee cavity was washed with pulsatile lavage and the bone ends were dried. Final components were cemented into place. All excess cement was removed before it was allowed to harden. After the cement hardened, the knee was taken through range of motion and found to be stable in all planes. Having completed this, a gram of vancomycin and a gram of tobramycin were placed into the knee cavity. The paramedian arthrotomy was then closed by WANG Florez using #2 Ethibond followed by #1 Vicryl, 2-0 Vicryl, and skin zipped ties. Sterile dressings were applied. Tourniquet was deflated. The patient was awakened and taken to recovery room in stable condition. All final needle and sponge counts were OPERATIVE REPORT [id number] CLAIRE HENDRIX correct. TRANSINT:[id number] Voice Confirmation ID: [id number] DOCUMENT ID: [id number] TIFFANIE JOHNSON, GERMAN ARIAS at 0724 CC: [id number] DICTATION DATE: 04/26/191428 RECORD PRODUCER: 04/26/192058 ADM IN [place] [id number] [place] [id number]
[2019-04-29] MEDS ORDERED: ELIQUIS2.5 MG PO (08:05)
[2019-04-29] MEDS ORDERED: HYDROCODON-ACE1 EA10 PO (08:06)
[2019-04-29] MEDS ORDERED: PERCOCET 10-321 EAC1 PO (12:50)
--- NOTE | 2019-04-29 13:10 | MORECARE ---
CASE MANAGEMENT DISCHARGE SUMMARY PATIENT: CLAIRE QUINTERO UNIT: [id number] ADM DATE: 04/26/19 AGE: 69 : 49 SEX: M ROOM/BED: D.1209 AUTHOR: BONITA,DOC PHYSICIAN: REFERRING PHYSICIAN: GERMAN MORENO MD DATE OF SERVICE: 04/29/19 Discharge Plan Patient Name: CLAIRE QUINTERO Facility: [facility]:[place] : 1950 Planned Disposition: Outpatient PT\OT Anticipated Discharge Date: Discharge Date: 04/29/2019 Expected LOS: Initial Reviewer: [email or web address] Initial Review Date: 04/26/2019 Generated: 04/29/19 2:10 pm Comments DCP- Discharge Planning Updated by [id number]: Samira Rankin on 04/28/19 3:[address] CM contacted Outpatient Therapy in [place] to reschedule appointment. new appointment 04/30/19 @1045. Patient's is aware of same. DCP- Discharge Planning Updated by [id number]: Samira Rankin on 04/27/19 9:[address] Home walker was delivered to patient's room. DCP- Discharge Planning Updated by [email or web address]: Samira Rankin on 04/27/19 9:[address] CM contacted OP [facility] [place], verified appointment April 29, 2019 @0945. CM faxed the order to [facility] and provided a copy to the patient. Original placed on chart. DCP- Discharge Planning Updated by [id number]: Fina Casillas on 04/26/19 4:[address] DC PLAN: Return home with and outpatient physical therapy. ANTICIPATED DC NEEDS: OP PT @ [facility] in [place]. CM met with patient to complete initial dc planning assessment. CM educated patient on the CM role and verbal consent given by patient to complete assessment. CM verified patient's address, phone number, and emergency contact phone numbers. Patient lives at home with his and was independent in his care prior to surgery. At discharge patient plans to return home with his and feels this is a safe discharge. He signed marty form for [facility] in [place]. He reports he has already made his first appointment for 05-06-19. He stated he would call and change if he needed to. Cm will fax order to the office once fax number is known. Office closed at this time. He reports his walker, cpm, and bsc have be delivered to his home prior to surgery. He reports the walker is not the right height and he needs a different one. CM called Jenna at Dr. Hodge office and she stated she would call the [email or web address] company to bring appropriate walker. Patient denied further known discharge needs at this time. Transportation provider at discharge will be his . CM will continue to follow and will assist as needed with dc plans/needs. Fina Casillas RN, CCM DCPIA - Discharge Planning Initial Assessment Updated by [id number]: Fina Casillas on 04/26/19 5:31 pm * Is the patient Alert and Oriented? Yes * How many steps to enter\exit or inside your home? * PCP Dr. Anuj Pierce [facility] * Pharmacy [facility] in [place] * Preadmission Environment Home with Family * ADLs Independent * Equipment Bedside Commode Rolling Walker * Other Equipment CPM * List name and contact numbers for known caregivers / representatives who currently or will assist patient after discharge: Najma Quintero - spouse - [phone] * Verbal permission to speak to the caregivers and representatives has been obtained from the patient. Yes * Additional services required to return to the preadmission environment? Yes * Can the patient safely return to the preadmission environment? Yes * Has this patient been hospitalized within the prior 30 days at any hospital? No Coverage Notice Reviewer: [id number] Jamila Casillas Notice Issued Date-Time: 04/26/2019 16:20 Notice Type: IM Admission Notice Notice Delivered To: Patient Relationship to Patient: Etcher Enameling Name: Delivery Method: - Yamilka Days: Prior Verbal Notification: Recipient Understood Notice: Yes Recipient Signature: Yes Med Rec Note Co-signed by Attending: Coverage Notice Comment: IMM delivered, explained, signed by the patient, and placed in his chart. Signed form also left with patient. Fina Casillas RN, CCM Reviewer: [id number] Jamila Casillas Notice Issued Date-Time: 04/26/2019 16:20 Notice Type: Patient Choice Letter Notice Delivered To: Patient Relationship to Patient: Etcher Enameling Name: Delivery Method: - Yamilka Days: Prior Verbal Notification: Recipient Understood Notice: Yes Recipient Signature: Yes Med Rec Note Co-signed by Attending: Coverage Notice Comment: MARTY signed for Physical Therapy [facility] Reviewer: [id number] Jamila Rankin Notice Issued Date-Time: 04/28/2019 14:28 Notice Type: IM Discharge Notice Notice Delivered To: Patient Relationship to Patient: Self Etcher Enameling Name: Claire Quintero Delivery Method: HAND - Hand Delivered Yamilka Days: Prior Verbal Notification: Recipient Understood Notice: Yes Recipient Signature: Yes Med Rec Note Co-signed by Attending: Coverage Notice Comment: DC IMM delivered to and signed by patient. Original given to the patient and one placed on the chart. Last DP export: 04/28/19 3:23 pm Patient Name: CLAIRE QUINTERO Page [id number] at 1310 All edits/amendments must be made on the electronic document DICTATION DATE: 04/29/19 1310 SPORTS UMPIRE: BRAEDEN 04/29/19 1310 RPT#: [id number] DC DATE:04/29/19 STATUS: DIS IN [facility] [address] [place] [address] END OF REPORT
== END 2019-04-29 12:30 | disposition home or self-care (01) | DRG 470 ==
LOC: D.SDCHOLD 04-21 10:00 → D.M3 04-26 07:08 → D.SDCHOLD 04-26 09:00 → D.M3 04-26 13:20
PROVIDERS: ADMIT Orthopaedic Surgery; ATTEND Orthopaedic Surgery
PROC: 0SRD0J9 Replacement of Left Knee Joint with Synthetic Substitute, Cemented, Open Approach (ICD-10-PCS; principal; 2019-04-26 09:45)
DX: M17.12 Unilateral primary osteoarthritis, left knee (principal); I10 Essential (primary) hypertension; K21.9 Gastro-esophageal reflux disease without esophagitis; E78.00 Pure hypercholesterolemia, unspecified; N40.1 Benign prostatic hyperplasia with lower urinary tract symptoms; R33.8 Other retention of urine

== ENCOUNTER 2019-05-11 09:40 | Day surgery (SDC) | payer MEDICARE, OTHER ==
[~2019-05-11] VITALS: Ht 182.9 cm; Wt 119.7 kg
[~2019-05-11 09:40] MED LIST changes: +HYDROCODON-ACE1 EA10 PO; +PERCOCET 10-321 EAC1 PO
[2019-05-11 10:17] LABS: APTT 31.9 SECONDS (22.8-39.4); INR 1.08 (0.85-1.17)
[2019-05-11 10:22] LABS: HEMATOCRIT 44.5 % (42.0-54.0); HEMOGLOBIN 14.5 g/dL (13.5-17.5); MCH 29.4 pg (26.0-34.0); MCHC 32.6 g/dL (31.0-37.0); MCV 90.3 fL (80.0-100.0); MEAN PLATELET VOLUME 10.1 fL (7.4-10.4); RBC 4.93 10x6/uL (4.20-6.10); WBC 12.9 10x3/uL (4.8-10.8)
[2019-05-11 10:42] VITALS: BP 132/79; Ht 182.9 cm; Wt 119.7 kg
--- NOTE | 2019-05-11 13:03 | NUR ---
PT ABLE TO URINATE 80ML BLOOD TINGED URINE.
--- NOTE | 2019-05-11 13:40 | NUR ---
PT DC INSTRUCTIONS REVIEWED AT THIS TIME, PT AND FAMILY VERBALIZED UNDERSTANDING. PT IV REMOVED AT THIS TIME, INTACT, NO REDNESS OR SWELLING NOTED AT SITE.
--- NOTE | 2019-05-11 13:45 | NUR ---
PT LEAVING OPS AT THIS TIME, WITH NURSE, VIA WC, FADI NOTED.
--- NOTE | 2019-05-11 15:52 | OP ---
PATIENT NAME: CLAIRE HENDRIX MEDICAL RECORD: [id number] :[birth year] LOCATION:[facility] ADMISSION DATE: SURGEON: WALTER LLOYD MD DATE OF OPERATION: 05/11/2019 SURGEON: Walter Lloyd MD ANESTHESIA: TIVA by Andrea Meek MD DIAGNOSES: Obstructive benign prostatic hyperplasia, history of urinary retention. Incomplete bladder emptying. IPSS score is 33. Quality of life score is 6 and post-void residual is 209 mL. PROCEDURE: UroLift times 6. FINDINGS: On cystoscopy, a long obstructive lateral lobes of the prostate. No median lobe. Heavily trabeculated bladder with cellules and single ureteral orifices with no bladder tumors. CLINICAL HISTORY: This is a 69-year-old male, who has a long history of BPH with obstruction. Since 2017, he has been on finasteride and tamsulosin. In spite of the medication, after he had his knee operated upon by Dr. Sharma, he went into urinary retention. I saw him in the office for a voiding trial and he had a postvoid residual of 209 mL. He comes to have the UroLift procedure done. He was given Levaquin IV driver education road instructor to the OR. DESCRIPTION OF PROCEDURE: The patient was given IV sedation. He was placed into the lithotomy position and prepped and draped. The UroLift scope was introduced. The lateral lobes of the obstructive site. A 1.5 cm distal to the bladder neck, at the anterolateral sulcus, we placed 1 unit on each side. Then, at the level of the verumontanum at the anterolateral sulcus, we placed 1 unit on each side. Looking in with the obturator, there was still obstruction in the mid prostatic urethra. At the mid prostatic urethra, at the mid distance in terms of anterior and posterior height, we placed 1 unit on each side. This now resulted in a wide open prostatic urethral channel. Irrigation fluid was left in the bladder for voiding trial. I will see the patient in followup in 2 weeks' time. TRANSINT:[id number] Voice Confirmation ID: [id number] DOCUMENT ID: [id number] WALTER LLOYD MD at 1552 CC: [id number] DICTATION DATE: 05/11/19 1243 PRACTICE REPRESENTATIVE: 05/11/19 1503 [facility] 05/11/19 [facility] [address] [place] [address]
== END 2019-05-11 13:45 | disposition home or self-care (01) ==
LOC: D.OPS 09:40
PROVIDERS: Anesthesiology; ATTEND Urology
DX: N40.1 Benign prostatic hyperplasia with lower urinary tract symptoms (principal); N13.8 Other obstructive and reflux uropathy; R39.14 Feeling of incomplete bladder emptying